=== PATIENT | female | born 1985 | race African-American/Black ===

== ENCOUNTER → 2019-01-14 | Outpatient (CLI) | payer OTHER ==
[~2019-01-14] MED LIST: DOXY100C2 PO
[2019-01-14 11:03] LABS: BASO % 0 % (0-3); EOS # 0.5 x10^3/uL (0.0-0.7); EOS % 6 % (0-3); HEMATOCRIT 36.1 % (36.0-47.0); HEMOGLOBIN 11.5 g/dL (12.0-15.5); LYMPH % 26 % (24-48); MEAN CORPUSCULAR HEMOGLOBIN 23 pg (25-35); MEAN CORPUSCULAR HGB CONC 32 g/dL (31-37); MEAN CORPUSCULAR VOLUME 72 fL (79-100); MONO # 0.5 x10^3/uL (0.0-1.1); MONO % 7 % (0-9); NEUT # 4.8 x10^3/uL (1.8-7.7); NEUT % 61 % (31-73); PLATELET COUNT 387 x10^3/uL (140-400); RED BLOOD COUNT 5.02 x10^6/uL (3.50-5.40); RED CELL DISTRIBUTION WIDTH 17.2 % (11.5-14.5); WHITE BLOOD COUNT 7.9 x10^3/uL (4.0-11.0)
[2019-01-14 11:23] LABS: CHOLESTEROL/HDL RATIO 3.4
[2019-01-14 11:32] LABS: FREE T4 0.91 ng/dL (0.76-1.46); THYROID STIM HORMONE (TSH) 1.618 uIU/mL (0.358-3.74)
== END | disposition home or self-care (01) ==
LOC: LAB 10:41
PROVIDERS: ATTEND Obstetrics & Gynecology
DX: Z01.419 Encounter for gynecological examination (general) (routine) without abnormal findings (principal); N93.9 Abnormal uterine and vaginal bleeding, unspecified
CPT/HCPCS: 36415; 80061; 84439; 84443; 85025

== ENCOUNTER → 2019-01-28 | Outpatient (CLI) | payer OTHER ==
--- NOTE | 2019-01-28 14:50 | RAD ---
EXAM: Pelvic sonogram. HISTORY: Abnormal uterine bleeding. TECHNIQUE: Transabdominal and transvaginal sonographic imaging of the pelvis was performed. COMPARISON: 01/22/2015. FINDINGS: The uterus measures 9.3 x 6.4 x 4.9 cm. The endometrial stripe measures 7.5 mm in thickness. The ovaries are normal in size and demonstrate normal blood flow. There is a 2.8 cm dominant left ovarian follicle/follicular cyst. There is no pelvic free fluid. IMPRESSION: 1. 2.8 cm dominant left ovarian follicle/follicular cyst. 2. Otherwise, unremarkable pelvic sonogram. Electronically signed by: Katherine Elizondo MD (01/28/2019 2:47 PM) [place] [id number]
== END | disposition home or self-care (01) ==
LOC: US 13:17
PROVIDERS: ATTEND Obstetrics & Gynecology
DX: Z01.419 Encounter for gynecological examination (general) (routine) without abnormal findings (principal); N93.9 Abnormal uterine and vaginal bleeding, unspecified; N92.6 Irregular menstruation, unspecified
CPT/HCPCS: 76830; 76856

== ENCOUNTER → 2019-02-25 | Outpatient (CLI) | payer OTHER ==
--- NOTE | 2019-02-25 17:29 | RAD ---
EXAM: Pelvic ultrasound HISTORY: Abnormal uterine bleeding, left ovarian cyst. COMPARISON: None. FINDINGS: Sonographic evaluation of the pelvis was performed transabdominally and transvaginally. The uterus is anteverted and measures 7.0 x 5.7 x 4.7 cm. The endometrial stripe measures 3 mm. No masses are identified. There is no significant free fluid. The right ovary measures 3.6 x 2.2 x 1.4 cm. The left ovary measures 3.2 x 1.3 x 1.7 cm. Small follicles are physiologic. There is normal Doppler flow bilaterally. There are no suspicious lesions. IMPRESSION: 1. Normal endometrial thickness. Recommend ongoing follow-up of abnormal vaginal bleeding. Electronically signed by: Doris Christensen MD (02/25/2019 5:26 PM) [place]
== END | disposition home or self-care (01) ==
LOC: US 16:00
PROVIDERS: ATTEND Obstetrics & Gynecology
DX: N83.202 Unspecified ovarian cyst, left side (principal)
CPT/HCPCS: 76830; 76856

== ENCOUNTER → 2019-11-09 | Outpatient (CLI) | payer OTHER ==
--- NOTE | 2019-11-09 17:06 | RAD ---
Two-view chest dated 11/09/2019. No comparison available. CLINICAL INDICATION: Shortness of breath. FINDINGS: PA and lateral views obtained. Heart and mediastinal contours within normal limits. Lungs are clear. No consolidation or pleural effusion. No pneumothorax. IMPRESSION: 1. No acute radiographic abnormality. Electronically signed by: Pramod Wright MD (11/09/2019 5:03 PM) [facility]
== END | disposition home or self-care (01) ==
LOC: RAD 16:32
PROVIDERS: ATTEND Family Medicine
DX: R06.02 Shortness of breath (principal)
CPT/HCPCS: 71046

== ENCOUNTER → 2019-12-26 | Outpatient (CLI) | payer OTHER ==
--- NOTE | 2019-12-26 08:46 | EKG ---
[facility] [address] [place] [address] Test Date: 2019-12-26 Test Time: 08:43:53 Pat Name: VANESSA MOLINA Department: Room: Gender: F Music Professor: MILAD : 1985 Requested By: MARGOTH MIN Order Number: [id number] Reading MD: Jesse Tarango Measurements Intervals [place] Rate: 69 P: 18 MD: 162 QRS: 47 QRSD: 86 T: 41 QT: 388 QTc: 417 Interpretive Statements SINUS RHYTHM NORMAL ECG RI6.02 No previous ECG available for comparison Electronically Signed On 12-27-2019 9:35:46 CDT by Jesse Tarango
--- NOTE | 2019-12-26 11:49 | CARD ---
MR#: [id number] Date of Study: 12/26/2019 Ordering Physician: MARGOTH MIN, Referring Physician: MARGOTH MIN, Tech: Garima Jackson RDCS APPROVED REPORT EXAM: Two-dimensional and M-mode echocardiogram with Doppler and color Doppler. Other Information Quality : Good INDICATION Chest Pain 2D DIMENSIONS RVDd3.1 (2.9-3.5cm)Left Atrium(2D)2.7 (1.6-4.0cm) IVSd0.8 (0.7-1.1cm)Aortic Root(2D)2.6 (2.0-3.7cm) LVDd4.7 (3.9-5.9cm)LVOT Diameter2.0 (1.8-2.4cm) PWd0.8 (0.7-1.1cm)LVDs3.1 (2.5-4.0cm) FS (%) 34.6 %SV66.8 ml LVEF(%)60.0 (>50%) Aortic Valve AoV Peak Jarek.186.9cm/sAoV VTI39.9cm AO Peak GR.14.0mmHgLVOT Peak Jarek.144.4cm/s AO Mean GR.7mmHgAVA (VMAX)2.54cm2 [place] (VTI)2.60cm2 Mitral Valve MV E Ncamgvjz535.5cm/sMV DECEL XOOQ577um MV A Lvlipbyf00.9cm/sE/A Ratio1.4 Tricuspid Valve TR P. Faxaatwz438fm/sRAP ORDJMSFE9wdIo TR Peak Gr.83yoVbANUO37ogQv Pulmonary Vein S1 Uepfhncr77.8cm/sD2 Ghkmzhxx47.8cm/s LEFT VENTRICLE The left ventricle is normal size. There is normal left ventricular wall thickness. The left ventricu lar systolic function is normal and the ejection fraction is within normal range. Left ventricular ej ection fraction is 55 to 60%. There is normal LV segmental wall motion. The left ventricular diastoli c function and filling is normal for age. RIGHT VENTRICLE The right ventricle is normal size. The right ventricular systolic function is normal. ATRIA The left atrium size is normal. The right atrium size is normal. The interatrial septum is intact wit h no evidence for an atrial septal defect or patent foramen ovale as noted on 2-D or Doppler imaging. AORTIC VALVE The aortic valve is normal in structure and function. Doppler and Color Flow revealed no significant aortic regurgitation. There is no significant aortic valvular stenosis. MITRAL VALVE The mitral valve is normal in structure and function. There is no evidence of mitral valve prolapse. There is no mitral valve stenosis. Doppler and Color Flow revealed no mitral valve regurgitation note d. TRICUSPID VALVE The tricuspid valve is normal in structure and function. Doppler and Color Flow revealed mild tricusp id regurgitation. The PA pressure was estimated at 28 mmHg. There is no tricuspid valve stenosis. PULMONIC VALVE The pulmonary valve is normal in structure and function. Doppler and Color Flow revealed mild pulmoni c valvular regurgitation. There is no pulmonic valvular stenosis. GREAT VESSELS The aortic root is normal in size. The ascending aorta is normal in size. The IVC is normal in size a nd collapses >50% with inspiration. PERICARDIAL EFFUSION There is no evidence of significant pericardial effusion. Critical Notification Critical Value: No <Conclusion> The left ventricle is normal size. The left ventricular systolic function is normal and the ejection fraction is within normal range. Left ventricular ejection fraction is 55 to 60%. Doppler and Color Flow revealed no significant aortic regurgitation. There is no significant aortic valvular stenosis. Doppler and Color Flow revealed no mitral valve regurgitation noted. Doppler and Color Flow revealed mild tricuspid regurgitation. The PA pressure was estimated at 28 mmHg. Signed by : Kojo Riley MD Electronically Approved : 12/26/2019 11:48:36
== END | disposition home or self-care (01) ==
LOC: ECHO 07:43
PROVIDERS: ATTEND Family Medicine
DX: I08.8 Other rheumatic multiple valve diseases (principal)
CPT/HCPCS: 93005; 93306